=== PATIENT | female | born 1990 | race Caucasian/White ===

== ENCOUNTER 2016-09-02 10:05 | Emergency (ER) | payer BC, MEDICAID ==
[~2016-09-02 10:05] MED LIST: PREN0.01 PO; SYNT88TA PO
[2016-09-02 11:12] LABS: BACTERIA, URINE OCC /hpf; BLOOD, URINE NEG (NEG); COMMENT (UR) CULT NOT INDICATED; CULTURE IF INDICATED CULT NOT INDICATED; GLUCOSE,URINE NEG (NEG); KETONE, URINE NEG (NEG); MUCUS URINE FEW /lpf (OCC); NITRITE,URINE NEG (NEG); SQUAMOUS EPITHELIAL CELL URINE 3 /hpf (0-5); URINE COLOR LIGHT-YELLOW (YELLW/STRAW)
--- NOTE | 2016-09-02 11:49 | PD ---
HPI Chief Complaint Abdominal and back pain for 6 days Date Seen: Sep 02, 2016 Travel History International Travel<30 Days: No Contact w/Intl Traveler<30Days: No Known Affected Area: No History of Present Illness HPI This patient is a 26-year-old white female now at 30 weeks gestation [address] by [address] Oneil for care presents complaining of lower abdominal pain and low back pain for 6 days now but getting a lot worse earlier today. She denies bleeding or rupture the membranes there are no contractions on the monitor and heart rate tracing is reactive Para: 1 : 2 History Obstetric History Obstetric History One vaginal delivery Family History Family History: Negative Social History Alcohol Use: No Tobacco Use: No Substance Abuse: No Allergies-Medications (Allergen,Severity, Reaction): Coded Allergies: No Known Allergies (Verified , 08/02/10) Home Meds Reported Medications Levothyroxine Sodium (Synthroid)88 Mcg Tab88 Mcg PO DAILY 08/02/10 Multivit/Min/Fol Ac/Iron/Pren ( Vit ( Plus)) Tab1 Tab PO DAILY 08/02/10 Review of Systems General / Constitutional: No: Fever, Weight Gain, Chills, Other Eyes: No: Diploplia, Blurred Vision, Visual changes, Pain, Photophobia HENT: No: Headaches, Vertigo, Lightheadedness Cardiovascular: No: Irregular Rhythm, Chest Pain or Discomfort, Palpitations, Tachycardia, Syncope, Varicosities, Edema, Cyanosis Respiratory: No: Cough, Short of Breath, Other Gastrointestinal: Abdominal Pain, No: Nausea, Vomiting, Diarrhea Genitourinary: No: Decreased Urinary Output, Oliguria Musculoskeletal: No: Limited ROM, Weakness, Cramping, Edema, Pain Skin: No Rash, No Itching, No Dryness, No Lumps, No Change in Pigmentation, No Change in Nails, No Alopecia, No Lesions Neurologic: No: Weakness, Dizziness, Syncope, Focal Abnormalities, Coordination Problem, Headache, Slurred Speech, Seizures Psychiatric: No: Depression, Suicidal Ideations, Homicidal Ideation Endocrine: No: Heat Intolerance, Cold Intolerance, Polydipsia, Polyuria, Other Physical Exam Narrative GENERAL: Well-nourished, well-developed patient. Not obviously in pain SKIN: Warm and dry. HEAD: Normocephalic and atraumatic. EYES: No scleral icterus. No injection or drainage. ENT: No nasal drainage noted. Mucous membranes pink. Airway patent. NECK: Supple, trachea midline. No JVD. CARDIOVASCULAR: Regular rate and rhythm without murmurs, gallops, or rubs. RESPIRATORY: Breath sounds equal bilaterally. No accessory muscle use. BREASTS: Bilateral exam showed no masses , no retractions, no nipple discharge. ABDOMEN/GI: Abdomen soft, non-tender, bowel sounds present, no rebound, no guarding Gravid to [30-] weeks size Fundal Height: [-30] GENITOURINARY: External Genitalia: intact and normal in appearance BUS glands: [-] Cervix: [-] Closed posterior high Dilatation: [-0] Effacement: [-] Thick Station: [-3] Membranes: [intact ] Uterine Contractions: [-] FHT's: Category: [1-] Baseline: [-144] Reactive: [-yes] Variability: [mod-] Decels: [none-] EXTREMITIES: No cyanosis or edema. BACK: Nontender without obvious deformity. No CVA tenderness. NEUROLOGICAL: Awake and alert. Motor and sensory grossly within normal limits. Five out of 5 muscle strength in all muscle groups. Normal speech. Data Data Orders Urinalysis - C+S If Indicated (09/02/16 10:58) Labs Laboratory Tests Test 09/02/16 10:20 Urine Color LIGHT-YELLOW Urine Turbidity CLEAR Urine pH 7.0 Urine Specific [place] 1.004 Urine Protein NEG Urine Glucose (UA) NEG Urine Ketones NEG Urine Occult Blood NEG Urine Nitrite NEG Urine Bilirubin NEG Urine Urobilinogen LESS THAN 2.0 Urine Leukocyte Esterase LARGE Urine RBC LESS THAN 1 Urine WBC 2 Urine Squamous Epithelial 3 Cells Urine Bacteria OCC Urine Mucus FEW Microscopic Urinalysis Comment CULT NOT INDICATED MDM Medical Record Reviewed: No Interpretation(s) This patient is a 26-year-old white female at 30 weeks gestation presents with lower abdominal pain and back pain for last 6 days worsening today. Denies bleeding or ruptured membranes. She seemed Dr. Oneil care and especially her back in 2 weeks. Her heart rate tracing is reactive she has no contractions noted her cervix is closed thick and high urinalysis is negative, therefore this is very likely musculoskeletal pain and strain from just activity. This was explained to the patient at length that she needs to increase her rest over the next 2 days lots of water to hydrate and Tylenol 1-2 every 4 when necessary pain also may use a heating pad on her back in time he and as well as soaking in a hot bath Plan Plan to discharge patient home to the above therapies with the increased rest fluid and Tylenol as her mainstay of therapy. She is to follow-up with Dr. Oneil for further problems. Diagnosis Diagnosis: Primary Impression: Round ligament pain Disposition: 01 DISCHARGE HOME Condition: Stable Iain Gomes II, MD Sep 02, 2016 11:49
== END 2016-09-02 12:46 | disposition home or self-care (01) ==
LOC: HOBED 10:05
DX: O26.893 Other specified pregnancy related conditions, third trimester (principal); R10.2 Pelvic and perineal pain; Z3A.30 30 weeks gestation of pregnancy
CPT/HCPCS: 81001; 99284

== ENCOUNTER 2016-09-08 20:02 | Emergency (ER) | payer BC, MEDICAID ==
--- NOTE | 2016-09-08 20:54 | PD ---
HPI Chief Complaint Right-sided back pain Date Seen: Sep 08, 2016 Time Seen: 20:49 Travel History International Travel<30 Days: No Contact w/Intl Traveler<30Days: No Known Affected Area: No History of Present Illness HPI 26-year-old female who is at 30 weeks and 5 days comes in due to right- sided back pain since yesterday afternoon. Patient states that she was uncomfortable and could not sleep last night and the discomfort has continued until today. Denies dysuria or frequency or urgency. Denies fever. Good movement Para: 1 : 2 Last Menstrual Period: Sep 08, 2016 (JIL November 13, 2006) History Past Medical History Narrative Medical Hypothyroidism Medical History: Denies Significant Hx Obstetric History Obstetric History Spontaneous vaginal delivery Past Surgical History Narrative Surgical Cholecystectomy Family History Family History: Negative Social History Alcohol Use: No Tobacco Use: No Substance Abuse: No Allergies-Medications (Allergen,Severity, Reaction): Coded Allergies: No Known Allergies (Verified , 08/02/10) Home Meds Reported Medications Levothyroxine Sodium (Synthroid)88 Mcg Tab88 Mcg PO DAILY 08/02/10 Multivit/Min/Fol Ac/Iron/Pren ( Vit ( Plus)) Tab1 Tab PO DAILY 08/02/10 Review of Systems Except as stated in HPI: all other systems reviewed are Neg Physical Exam Narrative GENERAL: Well-nourished, well-developed patient. SKIN: Warm and dry. HEAD: Normocephalic and atraumatic. EYES: No scleral icterus. No injection or drainage. ENT: No nasal drainage noted. Mucous membranes pink. Airway patent. NECK: Supple, trachea midline. No JVD. CARDIOVASCULAR: Regular rate and rhythm without murmurs, gallops, or rubs. RESPIRATORY: Breath sounds equal bilaterally. No accessory muscle use. BREASTS: Bilateral exam showed no masses , no retractions, no nipple discharge. ABDOMEN/GI: Abdomen soft, non-tender, bowel sounds present, no rebound, no guarding Gravid to [-30] weeks size Fundal Height: [-] GENITOURINARY: External Genitalia: intact and normal in appearance BUS glands: [-] Cervix: [-] Dilatation: [-] Effacement: [-] Station: [-] Presentation: [-] Membranes: [intact or ruptured] Uterine Contractions: [-Absent] FHT's: Category: [1-] Baseline: [135-] Reactive: Variability: Moderate accelerations are present Decels: [-Absent] EXTREMITIES: No cyanosis or edema. BACK: Nontender without obvious deformity. Mild right CVA tenderness extending into lower ribs NEUROLOGICAL: Awake and alert. Motor and sensory grossly within normal limits. Five out of 5 muscle strength in all muscle groups. Normal speech. Data Data Vital Signs Reviewed: Yes Orders Urinalysis - C+S If Indicated (09/08/16 20:33) Labs Laboratory Tests Test 09/08/16 20:18 Urine Color LIGHT-YELLOW Urine Turbidity CLEAR Urine pH 6.5 Urine Specific [place] 1.006 Urine Protein NEG mg/dL Urine Glucose (UA) NEG mg/dL Urine Ketones NEG mg/dL Urine Occult Blood NEG Urine Nitrite NEG Urine Bilirubin NEG Urine Urobilinogen LESS THAN 2.0 MG/DL Urine Leukocyte Esterase SMALL Urine RBC LESS THAN 1 /hpf Urine WBC LESS THAN 1 /hpf Urine Squamous Epithelial <1 /hpf Cells Urine Mucus FEW /lpf Microscopic Urinalysis Comment CULT NOT INDICATED MDM Plan Right-sided back pain with a normal urinalysis. Patient is afebrile. Will discharge home with Tylenol as necessary. Return for fever or worsening symptoms. Follow-up with OB provider as scheduled Diagnosis Diagnosis: Primary Impression: Musculoskeletal back pain Additional Impression: 30 weeks gestation of Disposition: DISCHARGE HOME Hina Adkins MD Sep 08, 2016 20:54
[2016-09-08 21:07] LABS: BLOOD, URINE NEG (NEG); COMMENT (UR) CULT NOT INDICATED; CULTURE IF INDICATED CULT NOT INDICATED; GLUCOSE,URINE NEG (NEG); KETONE, URINE NEG (NEG); MUCUS URINE FEW /lpf (OCC); NITRITE,URINE NEG (NEG); PH, URINE 6.5 (5.0-8.5); SQUAMOUS EPITHELIAL CELL URINE <1 /hpf (0-5); URINE COLOR LIGHT-YELLOW (YELLW/STRAW)
== END 2016-09-08 21:20 | disposition home or self-care (01) ==
LOC: HOBED 20:02
DX: M54.9 Dorsalgia, unspecified (principal); E03.9 Hypothyroidism, unspecified; O26.93 Pregnancy related conditions, unspecified, third trimester; Z3A.30 30 weeks gestation of pregnancy
CPT/HCPCS: 81001; 99284

== ENCOUNTER 2016-10-01 09:01 | Emergency (ER) | payer BC, MEDICAID ==
[2016-10-01 09:15] VITALS: RESP 18
[2016-10-01 09:17] VITALS: BP 129/95; PULSE 107
[2016-10-01 09:22] VITALS: TEMP 98.3
[2016-10-01 09:23] VITALS: BP 131/88; PULSE 103
[2016-10-01 09:30] VITALS: BP 124/80; PULSE 91
--- NOTE | 2016-10-01 09:30 | PD ---
HPI Chief Complaint Low back pain Date Seen: Oct 01, 2016 Time Seen: 09:10 (Amadou Choi MD R1) Travel History International Travel<30 Days: No Contact w/Intl Traveler<30Days: No Known Affected Area: No (Amadou Choi MD R1) History of Present Illness HPI 26 year old at 34/5 weeks gestation presents to OB ED with complaints of low back pain for the past three days. She states her low back pain is slightly worse on her right side. She denies any urinary symptoms, no dysuria, urgency, frequency, or hematuria. Denies fevers. Reports +FM. Denies contractions. No LOF or VB. She otherwise has no complaints or concerns. Para: 1 : 2 (Amadou Choi MD) History Past Medical History Narrative Medical Hypothyroidism (Amadou Choi MD) Obstetric History Obstetric History Previous resulting in (Amadou Choi MD) Past Surgical History Narrative Surgical Cholecystectomy (Amadou Choi MD) Family History Family History: Negative (Amadou Choi MD) Social History Alcohol Use: No Tobacco Use: No Substance Abuse: No (Amadou Choi MD) Allergies-Medications (Allergen,Severity, Reaction): Coded Allergies: No Known Allergies (Verified , 08/02/10) Home Meds Reported Medications Levothyroxine Sodium (Synthroid)88 Mcg Tab88 Mcg PO DAILY 08/02/10 Multivit/Min/Fol Ac/Iron/Pren ( Vit ( Plus)) Tab1 Tab PO DAILY 08/02/10 Review of Systems Except as stated in HPI: all other systems reviewed are Neg (Amadou Choi MD R1) Physical Exam Vital Signs Date Time Temp Pulse Resp B/P Pulse Ox O2 Delivery O2 Flow Rate FiO2 10/01/16 09:17 107 129/95 10/01/16 09:15 18 Narrative GENERAL: Well-nourished, well-developed patient. SKIN: Warm and dry. HEAD: Normocephalic and atraumatic. EYES: No scleral icterus. No injection or drainage. ENT: No nasal drainage noted. Mucous membranes pink. Airway patent. NECK: Supple, trachea midline. No JVD. CARDIOVASCULAR: Regular rate and rhythm without murmurs, gallops, or rubs. RESPIRATORY: Breath sounds equal bilaterally. No accessory muscle use. ABDOMEN/GI: Abdomen soft, non-tender, bowel sounds present, no rebound, no guarding Gravid to 35 weeks size GENITOURINARY: External Genitalia: intact and normal in appearance Cervix: thick Dilatation: [closed] Effacement: [0] Station: [-3] Presentation: [-] Membranes: [intact] Uterine Contractions: none on tocometer FHT's: Category: I Baseline: 130s Reactive: yes Variability: mod Decels: none EXTREMITIES: No cyanosis or edema. BACK: Nontender without obvious deformity. No CVA tenderness. NEUROLOGICAL: Awake and alert. Motor and sensory grossly within normal limits. Normal speech. (Amadou Choi MD R1) Data Data Vital Signs Reviewed: Yes Orders Vital Signs (Adult) .ON ADMISSION (10/01/16 09:14) ^ Labor Status (10/01/16 09:14) Urinalysis - C+S If Indicated (10/01/16 09:14) ^ Hydration (10/01/16 09:14) (Amadou Choi MD R1) MDM Medical Record Reviewed: Yes Plan 26 year old at 34/5 weeks gestation presents to OB ED with complaints of low back pain. 1. IUP - Category I tracing, reassuring - No contractions on tocometer - No report of LOF or VB - On external inspection there was noted to be a scant amount of clear fluid. Amnisure negative. - Speculum examination performed prior to digital exam showed closed cervix - UA is clean and no culture indicated - No fevers or urinary symptoms. No CVA tenderness - Encourage oral hydration - Tylenol prn pain - Follow up with Dr. Oneil for routine care wdw Dr. Fuentes (Amadou Choi MD R1) Diagnosis Diagnosis: Primary Impression: Low back pain during Additional Impression: Nursery Hancock' contraction Disposition: 01 DISCHARGE HOME Condition: Stable Patient Instructions: Early Labor Signs (ED) Addendum Remarks I rounded on the patient. I rounded with the resident. I reviewed the resident' s assessment and plan of care for this patient. I am in agreement with the plan of care for this patient. (Shipla Alva MD) Amadou Choi MD R1 Oct 01, 2016 09:30 Shilpa Alva MD Oct 01, 2016 09:58
[2016-10-01 09:40] LABS: BLOOD, URINE NEG (NEG); GLUCOSE,URINE NEG (NEG); KETONE, URINE NEG (NEG); NITRITE,URINE NEG (NEG); PH, URINE 6.5 (5.0-8.5); SQUAMOUS EPITHELIAL CELL URINE <1 /hpf (0-5); URINE COLOR YELLOW (YELLW/STRAW)
[2016-10-01 09:41] LABS: COMMENT (UR) CULT NOT INDICATED; CULTURE IF INDICATED CULT NOT INDICATED
== END 2016-10-01 09:59 | disposition home or self-care (01) ==
LOC: HOBED 09:01
DX: M54.5 Low back pain (principal); O47.03 False labor before 37 completed weeks of gestation, third trimester; Z3A.34 34 weeks gestation of pregnancy
CPT/HCPCS: 59025; 81001; 84112

== ENCOUNTER 2016-10-12 17:18 | Observation (INO) | payer BC, MEDICAID ==
--- NOTE | 2016-10-12 18:01 | HHI.HP ---
HPI Chief Complaint headache at 36 weeks with elevated BP at home Date Seen: Oct 12, 2016 Time Seen: 17:56 Travel History International Travel<30 Days: No Contact w/Intl Traveler<30Days: No Known Affected Area: No History of Present Illness HPI 26 yo wf at 36 2/7 arrived to OB ED with c/o severe headache on left side, blurred vision and elevated BP at home No HTN during routine and complete PNC. No PIH or pre eclampsia with first child 6 years ago although new father. Feels very swollen. No N or V initial strip fairly flat PNC with HOGA mostly with Oneil. Mild hypothyroidism No PTL No GDM GFM Allergies-Medications (Allergen,Severity, Reaction): Coded Allergies: No Known Allergies (Verified , 08/02/10) Home Meds Reported Medications Levothyroxine Sodium (Synthroid)88 Mcg Tab88 Mcg PO DAILY 08/02/10 Multivit/Min/Fol Ac/Iron/Pren ( Vit ( Plus)) Tab1 Tab PO DAILY 08/02/10 Physical Exam Narrative GENERAL: Well-nourished, well-developed patient.mildly puffy SKIN: Warm and dry. HEAD: Normocephalic and atraumatic. frowning with her headache EYES: No scleral icterus. No injection or drainage. ENT: No nasal drainage noted. Mucous membranes pink. Airway patent. NECK: Supple, trachea midline. No JVD. CARDIOVASCULAR: Regular rate and rhythm without murmurs, gallops, or rubs. RESPIRATORY: Breath sounds equal bilaterally. No accessory muscle use. BREASTS: Bilateral exam showed no masses , no retractions, no nipple discharge. ABDOMEN/GI: Abdomen soft, non-tender, bowel sounds present, no rebound, no guarding fundal height consistent with dates Membranes: [intact or ruptured] 1+/80/-1 and posterior EXTREMITIES: No cyanosis 2+ edema normal reflexes BACK: Nontender without obvious deformity. No CVA tenderness. NEUROLOGICAL: Awake and alert. Motor and sensory grossly within normal limits. Five out of 5 muscle strength in all muscle groups. Normal speech. Data Data Vital Signs Reviewed: Yes Labs PIH at near term. rule out pre exclampsia labs, continiuous monitoring move toward delivery if condition merits. Marcela Knutson MD Oct 12, 2016 18:01
[2016-10-12] MEDS ORDERED: ZOLPIDEM TARTRATE 5 MG TAB PO PRN (19:15)
[2016-10-12] MEDS ORDERED: ONDANSETRON HCL 4 MG/2 ML VIAL IV PRN (19:15)
[2016-10-12] MEDS ORDERED: LACTATED RINGER'S 1000 ML INJ 1,000 ML IV SCH (19:15)
[2016-10-12] MEDS ORDERED: ACETAMINOPHEN 325 MG TAB PO PRN (19:15)
[2016-10-12 19:54] LABS: BASOPHIL % 0.2 % (0.0-2.0); EOSINOPHIL # 0.1 TH/MM3 (0-0.4); EOSINOPHIL % 0.7 % (0.0-4.0); HEMATOCRIT 32.7 % (35.0-46.0); HEMO FLAGS DIFF FINAL; LYMPH % 23.2 % (9.0-44.0); MEAN CORPUSCULAR HEMOGLOBIN 31.1 PG (27.0-34.0); MEAN CORPUSCULAR HGB CONC 34.6 % (32.0-36.0); MONO % 6.7 % (0.0-8.0); NEUT % 69.2 % (16.0-70.0); PLATELET COUNT 160 TH/MM3 (150-450); RED BLOOD COUNT 3.63 MIL/MM3 (4.00-5.30); RED CELL DISTRIBUTION WIDTH 13.6 % (11.6-17.2); WHITE BLOOD COUNT 8.6 TH/MM3 (4.0-11.0)
[2016-10-12 19:56] VITALS: BP 126/93; PULSE 76
[2016-10-12 19:57] VITALS: RESP 18; TEMP 98.4
[2016-10-12 20:03] LABS: BLOOD, URINE NEG (NEG); COMMENT (UR) CULT NOT INDICATED; CULTURE IF INDICATED CULT NOT INDICATED; GLUCOSE,URINE NEG (NEG); KETONE, URINE NEG (NEG); NITRITE,URINE NEG (NEG); PH, URINE 6.5 (5.0-8.5); SQUAMOUS EPITHELIAL CELL URINE 1 /hpf (0-5); URINE COLOR COLORLESS (YELLW/STRAW)
[2016-10-12 20:10] LABS: BICARBONATE 22.3 MEQ/L (21.0-32.0); INDIRECT BILIRUBIN 0.2 MG/DL (0.0-0.8); POTASSIUM 3.4 MEQ/L (3.5-5.1); TOTAL BILIRUBIN ADULT 0.3 MG/DL (0.2-1.0); URIC ACID 5.1 MG/DL (2.6-6.0)
[2016-10-12] MEDS ORDERED: ACETAMIN 325 MG/BUTALBITAL 50 MG/CAFFEINE 40 MG TAB PO PRN (21:00)
[2016-10-12 21:49] VITALS: BP 132/84; PULSE 72
[2016-10-13] VITALS (8 sets, daily range): BP systolic 116–139; BP diastolic 67–83; PULSE 68–77; RESP 16–20; TEMP 98–99
[2016-10-13] MEDS ORDERED: LEVOTHYROXINE SODIUM 112 MCG TAB PO SCH (06:00)
[2016-10-13] MEDS ORDERED: LEVOTHYROXINE SODIUM 25 MCG TAB PO SCH (06:00)
--- NOTE | 2016-10-13 07:51 | PD.OB.ANTE ---
Subjective Diagnosis: (1) Headache Diagnosis: Principal (2) Gestational hypertension Diagnosis: Principal (3) 36 weeks gestation of Diagnosis: Principal Interval History Headache resolved overnight. No current complaints. Good FM. Pain 0/10. No blurred vision, no CARR, no RUQ pain, no edema. Antepartum ROS: Reports: movement normal, Denies: New complaints, Loss of fluid, Vaginal bleeding, Contractions, Other Objective Vital Signs Vital Signs Date Time Temp Pulse Resp B/P Pulse Ox O2 Delivery O2 Flow Rate FiO2 10/13/16 06:07 98.4 18 10/13/16 06:05 68 139/82 10/13/16 06:01 18 10/13/16 03:56 16 10/13/16 03:56 99.0 10/13/16 03:47 74 117/75 10/13/16 00:05 98.0 18 10/13/16 00:04 70 116/67 10/12/16 21:49 72 132/84 10/12/16 19:57 98.4 18 10/12/16 19:56 76 126/93 Lab & Micro Results Test 10/12/16 17:30 White Blood Count 8.6 TH/MM3 Red Blood Count 3.63 MIL/MM3 Hemoglobin 11.3 GM/DL Hematocrit 32.7 % Mean Corpuscular Volume 90.0 FL Mean Corpuscular Hemoglobin 31.1 PG Mean Corpuscular Hemoglobin 34.6 % Concent Red Cell Distribution Width 13.6 % Platelet Count 160 TH/MM3 Mean Platelet Volume 10.2 FL Neutrophils (%) (Auto) 69.2 % Lymphocytes (%) (Auto) 23.2 % Monocytes (%) (Auto) 6.7 % Eosinophils (%) (Auto) 0.7 % Basophils (%) (Auto) 0.2 % Neutrophils # (Auto) 6.0 TH/MM3 Lymphocytes # (Auto) 2.0 TH/MM3 Monocytes # (Auto) 0.6 TH/MM3 Eosinophils # (Auto) 0.1 TH/MM3 Basophils # (Auto) 0.0 TH/MM3 CBC Comment DIFF FINAL Differential Comment Urine Color COLORLESS Urine Turbidity CLEAR Urine pH 6.5 Urine Specific [place] 1.004 Urine Protein NEG mg/dL Urine Glucose (UA) NEG mg/dL Urine Ketones NEG mg/dL Urine Occult Blood NEG Urine Nitrite NEG Urine Bilirubin NEG Urine Urobilinogen LESS THAN 2.0 MG/DL Urine Leukocyte Esterase NEG Urine RBC 1 /hpf Urine WBC 1 /hpf Urine Squamous Epithelial 1 /hpf Cells Microscopic Urinalysis Comment CULT NOT INDICATED Sodium Level 139 MEQ/L Potassium Level 3.4 MEQ/L Chloride Level 107 MEQ/L Carbon Dioxide Level 22.3 MEQ/L Anion Gap 10 MEQ/L Blood Urea Nitrogen 3 MG/DL Creatinine 0.49 MG/DL Estimat Glomerular Filtration 153 ML/MIN Rate Random Glucose 66 MG/DL Uric Acid 5.1 MG/DL Calcium Level 8.4 MG/DL Total Bilirubin 0.3 MG/DL Direct Bilirubin 0.1 MG/DL Indirect Bilirubin 0.2 MG/DL Aspartate Amino Transf 15 U/L (AST/SGOT) Alanine Aminotransferase 13 U/L (ALT/SGPT) Alkaline Phosphatase 178 U/L Total Protein 6.3 GM/DL Albumin 2.9 GM/DL Physical Exam GENERAL: Well-nourished, well-developed patient. CARDIOVASCULAR: Regular rate and rhythm without murmurs, gallops, or rubs. RESPIRATORY: Breath sounds equal bilaterally. No accessory muscle use. ABDOMEN/GI: Abdomen soft, non-tender. Fundus: [36] GENITOURINARY: External Genitalia: deferred FHT's: Category: [I] Baseline: [130s] Reactive: [y] Variability: [y] Decels: [n] EXTREMITIES: No cyanosis or edema, non-tender, without signs of DVT. Assessment and Plan Problem List: (1) Headache Status: Acute (2) Gestational hypertension Status: Acute (3) 36 weeks gestation of Status: Acute Assessment and Plan 26 yo at 36w3d admit overnight for observation due to reported elevated BP at home and headache since Tuesday 1) GHTN/CARR: headache resolved with rest & IV fluids; no severe range BPs while here, reports home pressures 150s/90s since Tuesday. PIH labs wnl, no protein in urine; at this time d/w pt precautions but due to no signs of severity ok to d/c to home with office f/u in 1-2 days, plan BPP & growth prior to d/c for full assessment 2) status: female, Cat I tracing 3) dispo: d/c after BPP/growth scan if reassuring Debbi Bellamy MD Oct 13, 2016 07:51
[2016-10-13] MEDS ORDERED: MULTIVIT/MIN/PREN/FOL AC/IRON PRENATAL TAB PO SCH (09:00)
== END 2016-10-13 13:09 | disposition home or self-care (01) ==
LOC: HOBED 17:18 → H2EA 18:24 → INTOOBSV 18:24 → UNDODISIN 10-13 13:09
PROVIDERS: ADMIT Obstetrics & Gynecology; ATTEND Obstetrics & Gynecology
DX: O13.3 Gestational [pregnancy-induced] hypertension without significant proteinuria, third trimester (principal); R51 Headache; H53.8 Other visual disturbances; E03.9 Hypothyroidism, unspecified; Z3A.36 36 weeks gestation of pregnancy
CPT/HCPCS: 76816; 76819; 76820; 80048; 80076; 81001; 84550; 85025; 99284; G0378

== ENCOUNTER 2016-10-25 18:02 | Inpatient (IN) | payer BC, MEDICAID ==
[2016-10-25 18:56] LABS: AUTOMATED NEUTROPHIL # 6.9 TH/MM3 (1.8-7.7); BASOPHIL % 0.2 % (0.0-2.0); EOSINOPHIL % 0.5 % (0.0-4.0); HEMO FLAGS DIFF FINAL; LYMPHOCYTE # 1.9 TH/MM3 (1.0-4.8); MEAN CELL VOLUME 90.1 FL (80.0-100.0); MEAN CORPUSCULAR HEMOGLOBIN 29.9 PG (27.0-34.0); MEAN CORPUSCULAR HGB CONC 33.2 % (32.0-36.0); MONO % 5.9 % (0.0-8.0); NEUT % 73.4 % (16.0-70.0); PLATELET COUNT 171 TH/MM3 (150-450); RED BLOOD COUNT 3.78 MIL/MM3 (4.00-5.30); RED CELL DISTRIBUTION WIDTH 13.5 % (11.6-17.2); WHITE BLOOD COUNT 9.4 TH/MM3 (4.0-11.0)
[2016-10-25 19:08] LABS: BLOOD, URINE SMALL (NEG); COMMENT (UR) CULT NOT INDICATED; CULTURE IF INDICATED CULT NOT INDICATED; GLUCOSE,URINE NEG (NEG); KETONE, URINE NEG (NEG); MUCUS URINE FEW /lpf (OCC); NITRITE,URINE NEG (NEG); PH, URINE 6.5 (5.0-8.5); SQUAMOUS EPITHELIAL CELL URINE 1 /hpf (0-5); URINE COLOR LIGHT-YELLOW (YELLW/STRAW)
[2016-10-25 19:25] LABS: ALKALINE PHOSPHATASE 214 U/L (45-117); ALT (GPT) 16 U/L (10-53); ANION GAP 11 MEQ/L (5-15); AST (GOT) 14 U/L (15-37); BICARBONATE 20.4 MEQ/L (21.0-32.0); BLOOD UREA NITROGEN 2 MG/DL (7-18); CHLORIDE 107 MEQ/L (98-107); GLOMERULAR FILTRATION RATE 128 ML/MIN (>89); POTASSIUM 3.4 MEQ/L (3.5-5.1); SODIUM (NA) 138 MEQ/L (136-145); TOTAL BILIRUBIN ADULT 0.3 MG/DL (0.2-1.0)
[2016-10-25] MEDS ORDERED: NS 500 ML BOLUS IV PRN (19:30)
[2016-10-25] MEDS ORDERED: OXYTOCIN 30 UNITS 500ML PREMIX IV ONE (19:30)
[2016-10-25] MEDS ORDERED: LIDOCAINE HCL 1% 50 ML VIAL I-DERMAL PRN (19:30)
[2016-10-25] MEDS ORDERED: LIDOCAINE HCL 1% 50 ML VIAL INFIL PRN (19:30)
[2016-10-25] MEDS ORDERED: CITRIC ACID-SODIUM CITRATE LIQ 30 ML UDC PO SCH (19:30)
[2016-10-25] MEDS ORDERED: LACTATED RINGER'S 1000 ML BOLUS IV PRN (19:30)
[2016-10-25] MEDS ORDERED: ONDANSETRON HCL 4 MG/2 ML VIAL IV PRN (19:30)
[2016-10-25] MEDS ORDERED: MINERAL OIL 10 ML VIAL TOPICAL PRN (19:30)
[2016-10-25] MEDS ORDERED: NS 1000 ML IV PRN (19:30)
[2016-10-25 19:42] VITALS: BP 138/86; PULSE 79
[2016-10-25 19:43] VITALS: RESP 18; TEMP 98
[2016-10-25] MEDS ORDERED: DINOPROSTONE 10 MG INSERT-LEAVE FOR 12 HOURS VAGINAL ONE (19:45)
[2016-10-25 23:56] VITALS: BP 141/95; PULSE 65
[2016-10-26] VITALS (81 sets, daily range): BP systolic 109–164; BP diastolic 71–123; PULSE 60–189; RESP 16–18; TEMP 98–100.6; O2SAT 98
[2016-10-26] MEDS: LACTATED RINGER'S 1000 ML IV SCH ×3 (06:00→17:20)
[2016-10-26] MEDS: LEVOTHYROXINE SODIUM 112 MCG TAB PO SCH (06:00)
[2016-10-26] MEDS: LEVOTHYROXINE SODIUM 25 MCG TAB PO SCH (06:00)
[2016-10-26] MEDS ORDERED: ACETAMINOPHEN 325 MG TAB PO ONE ×2 (06:45→17:15)
--- NOTE | 2016-10-26 07:59 | PD.LABORPN ---
Subjective Subjective comfortable post night of cervidil no CARR, N, V, blurred vision GFM mild UCs Objective Vital Signs Vital Signs Date Time Temp Pulse Resp B/P Pulse Ox O2 Delivery O2 Flow Rate FiO2 10/26/16 07:25 62 131/85 10/26/16 07:24 18 10/26/16 06:34 98.6 18 10/26/16 06:19 87 134/95 10/26/16 01:08 83 123/76 10/26/16 00:00 60 155/99 Objective 2-3/80-/-1 AROM clear pelvis proven and clinically adequate EFW 7 category one strip Assessment/Plan Assessment and Plan at term brought in for mild HIP favorable bishops post cervidil and AROM breakfast, shower, birthing ball and pitocin prn epidural prn anticipate Marcela Gonsales MD Oct 26, 2016 07:59
[2016-10-26] MEDS ORDERED: fentaNYL 2MCG-BUPIV 0.125% INJ 100 ML ONE (13:27)
[2016-10-26] MEDS ORDERED: ePHEDrine/NS 25 MG/5 ML SYR ONE (14:08)
[2016-10-26] MEDS ORDERED: fentaNYL 2MCG-BUPIV 0.125% 100 ML EPIDURAL SCH (15:00)
[2016-10-26] MEDS ORDERED: NO SYSTEM NARCOTICS PRN (15:00)
[2016-10-26] MEDS ORDERED: ePHEDrine/NS 25 MG/5 ML SYR IV PRN (15:00)
[2016-10-26] MEDS ORDERED: DO NOT ADMINISTER ANTICOAGULANTS PRN (15:00)
[2016-10-26] MEDS ORDERED: OXYTOCIN 30 UNITS-500ML PREMIX 500 ML ONE (16:28)
[2016-10-26] MEDS ORDERED: ceFAZolin 1,000 MG/NS 100 ML IV ONE ×2 (17:15)
--- NOTE | 2016-10-26 18:17 | PD.OB.DELI ---
Anesthesia: Epidural Episiotomy: None Vaginal Delivery: Normal Presentation: Occiput anterior Nuchal Cord: None Delayed cord clamping (45 sec): Yes Infant: Female One Minute : 8 Five Minute : 9 Weight: 7 Placenta: Spontaneous delivery Laceration: No lacerations Marcela Knutson MD Oct 26, 2016 18:17
[2016-10-26] MEDS ORDERED: ONDANSETRON ODT 4 MG TAB PO PRN (18:30)
[2016-10-26] MEDS ORDERED: SODIUM CHLORIDE 0.9% FLUSH 10 ML FLUSH IV FLUSH PRN (18:30)
[2016-10-26] MEDS ORDERED: DOCUSATE SODIUM 50 MG/SENNA 8.6 MG TAB PO PRN (18:30)
[2016-10-26] MEDS ORDERED: WITCH HAZEL 50%/GLYCERIN 12.5% 40 PAD JAR TOPICAL PRN (18:30)
[2016-10-26] MEDS ORDERED: ALUMINUM/MAGNESIUM/SIMETH 30 ML CUP PO PRN (18:30)
[2016-10-26] MEDS ORDERED: ZOLPIDEM TARTRATE 5 MG TAB PO PRN (18:30)
[2016-10-26] MEDS ORDERED: ACETAMINOPHEN 325 MG TAB PO PRN (18:30)
[2016-10-26] MEDS ORDERED: BENZOCAINE 20% TOPICAL SPRAY 60 ML CAN TOPICAL PRN (18:30)
[2016-10-26] MEDS ORDERED: MEASLES, MUMPS, RUBELLA VACCINE 0.5 ML VIAL SQ ONE (20:00)
[2016-10-26] MEDS ORDERED: DIPHTH/TETANUS/ACEL PERTUSSIS (BOOSTER) 0.5 ML VIAL/PFS IM ONE (20:00)
[2016-10-26] MEDS ORDERED: SODIUM CHLORIDE 0.9% FLUSH 10 ML FLUSH IV FLUSH SCH (21:00)
[2016-10-26] MEDS: IBUPROFEN 600 MG TAB PO PRN (21:42)
[2016-10-26] MEDS: oxyCODONE/ACETAMINOPHEN 5 MG/325 MG TAB PO PRN (21:42)
[2016-10-26] MEDS ORDERED: oxyCODONE/ACETAMINOPHEN 5 MG/325 MG TAB PO PRN (21:45)
[2016-10-27] MEDS: oxyCODONE/ACETAMINOPHEN 5 MG/325 MG TAB PO PRN ×4 (02:06→21:01)
[2016-10-27] MEDS: IBUPROFEN 600 MG TAB PO PRN ×3 (04:46→17:46)
[2016-10-27 05:58] LABS: HEMATOCRIT 26.2 % (35.0-46.0); REVIEW FLAG FINAL
[2016-10-27] MEDS: LEVOTHYROXINE SODIUM 25 MCG TAB PO SCH (06:09)
[2016-10-27] MEDS: LEVOTHYROXINE SODIUM 112 MCG TAB PO SCH (06:09)
[2016-10-27 08:05] VITALS: BP 117/87; PULSE 81; RESP 18; TEMP 98.1
--- NOTE | 2016-10-27 08:33 | HHI.OB ---
Subjective Post Day: 1 Remarks feeling better today, no CARR, BV, CP Objective Vitals/I&O Vital Signs Date Time Temp Pulse Resp B/P Pulse Ox O2 Delivery O2 Flow Rate FiO2 10/27/16 05:46 16 10/27/16 03:06 16 10/26/16 22:30 83 18 128/71 10/26/16 21:45 86 18 139/79 10/26/16 20:05 98.5 70 18 130/90 98 10/26/16 19:30 74 128/77 10/26/16 19:15 80 135/91 10/26/16 19:00 85 127/75 10/26/16 18:45 18 10/26/16 18:30 94 128/80 10/26/16 18:29 92 128/71 10/26/16 18:20 18 10/26/16 18:12 106 147/73 10/26/16 18:11 98.4 18 10/26/16 18:02 189 153/99 10/26/16 17:55 133 138/80 10/26/16 17:55 98 10/26/16 17:51 115 109/90 10/26/16 17:50 98 10/26/16 17:45 97 146/123 10/26/16 17:45 120 10/26/16 17:40 92 10/26/16 17:35 97 10/26/16 17:30 109 10/26/16 17:30 90 154/91 10/26/16 17:25 107 10/26/16 17:20 94 10/26/16 17:15 81 10/26/16 17:10 89 10/26/16 17:05 90 10/26/16 17:02 88 152/91 10/26/16 17:00 95 162/83 10/26/16 17:00 80 10/26/16 16:55 100.6 87 18 10/26/16 16:50 87 10/26/16 16:45 87 10/26/16 16:40 87 10/26/16 16:35 83 10/26/16 16:35 86 147/87 10/26/16 16:30 99.7 10/26/16 16:30 84 140/97 10/26/16 16:30 18 10/26/16 16:30 87 10/26/16 16:25 78 10/26/16 16:20 90 10/26/16 16:15 101 10/26/16 16:10 98 10/26/16 16:05 90 10/26/16 16:00 80 10/26/16 16:00 80 126/75 10/26/16 15:55 82 10/26/16 15:50 82 10/26/16 15:45 81 143/88 10/26/16 15:45 77 10/26/16 15:40 81 10/26/16 15:35 78 10/26/16 15:30 82 138/85 10/26/16 15:30 77 10/26/16 15:25 75 10/26/16 15:20 75 10/26/16 15:15 77 146/89 10/26/16 15:15 77 10/26/16 15:10 73 10/26/16 15:06 18 10/26/16 15:05 74 10/26/16 15:00 68 136/78 10/26/16 15:00 64 10/26/16 14:55 73 132/84 10/26/16 14:55 79 10/26/16 14:50 85 10/26/16 14:50 79 138/86 10/26/16 14:45 80 134/84 10/26/16 14:45 74 10/26/16 14:43 98.6 10/26/16 14:40 75 10/26/16 14:40 78 138/88 10/26/16 14:38 16 10/26/16 14:35 77 138/90 10/26/16 14:35 85 10/26/16 14:31 76 148/88 10/26/16 14:30 87 10/26/16 14:29 91 164/108 10/26/16 14:25 84 10/26/16 14:25 94 139/97 10/26/16 14:21 86 154/99 10/26/16 14:20 92 10/26/16 14:15 83 10/26/16 14:10 92 10/26/16 14:06 76 136/85 10/26/16 14:05 83 10/26/16 14:04 95 151/103 10/26/16 12:18 77 133/81 4/11/17 12:17 76 138/92 10/26/16 12:15 98.0 18 10/26/16 10:19 18 10/26/16 10:19 74 138/86 10/26/16 09:26 98.1 18 10/26/16 09:26 89 124/84 Objective Remarks GENERAL: Well-nourished, well-developed patient. CARDIOVASCULAR: Regular rate and rhythm without murmurs, gallops, or rubs. RESPIRATORY: Breath sounds equal bilaterally. No accessory muscle use. ABDOMEN/GI: Abdomen soft, non-tender. Fundus: Firm, non-tender at umbilicus. GENITOURINARY: Light to moderate bleeding. EXTREMITIES: No cyanosis or edema, non-tender, without signs of DVT. Medications and IVs Current Medications Medications (Trade) Dose Ordered Sig/Rito Route Start Time Stop Time Status Last Admin Lactated Ringer's 1,000 ml @ 125 mls/hr Q8H IV 10/25/16 19:30 10/26/16 17:20 Lactated Ringer's 1,000 ml @ 3,000 mls/hr BOLUS PRN IV 10/25/16 19:30 Sodium Chloride 500 ml @ 1,000 mls/hr BOLUS PRN IV 10/25/16 19:30 (NS 1000 ml Inj) 1,000 ml @ 100 mls/hr Q10H PRN IV 10/25/16 19:30 (Zofran Inj) 4 mg Q6H PRN IV 10/25/16 19:30 (fentaNYL INJ) 50 mcg Q1H PRN IV PUSH 10/25/16 19:30 (fentaNYL INJ) 100 mcg Q1H PRN IV PUSH 10/25/16 19:30 10/26/16 12:46 (Muri-Lube Oil) 10 ml UNSCH PRN TOPICAL 10/25/16 19:30 (Synthroid) 25 mcg DAILY@06 PO 10/26/16 06:00 10/27/16 06:09 (Synthroid) 112 mcg DAILY@06 PO 10/26/16 06:00 10/27/16 06:09 Miscellaneous Information No systemic narcotics to be given except... UNSCH PRN .XX 10/26/16 15:00 10/27/16 14:59 Miscellaneous Information DO NOT ADMINISTER ANY ANTICOAGUL... UNSCH PRN .XX 10/26/16 15:00 10/27/16 14:59 (fentaNYL 2MCG-BUPIV 0.125% INJ) 100 ml @ 0 mls/hr TITRATE EPIDURAL 10/26/16 15:00 (ePHEDrine/NS 25 MG/5 ML SYR) 10 mg UNSCH PRN IV 10/26/16 15:00 10/27/16 14:59 (NS Flush) 2 ml BID IV FLUSH 10/26/16 21:00 (NS Flush) 2 ml UNSCH PRN IV FLUSH 10/26/16 18:30 (Tylenol) 650 mg Q4H PRN PO 10/26/16 18:30 (Motrin) 600 mg Q6H PRN PO 10/26/16 18:30 10/27/16 04:46 (Americaine 20% Top Spr) 1 spray Q4H PRN TOPICAL 10/26/16 18:30 (Tucks Pads) 1 applic QID PRN TOPICAL 10/26/16 18:30 (May-Colace) 2 tab Q12H PRN PO 10/26/16 18:30 (Ambien) 5 mg HS PRN PO 10/26/16 18:30 (Mag-Al Plus Susp Liq) 15 ml Q8H PRN PO 10/26/16 18:30 (Zofran Odt) 4 mg Q6H PRN PO 10/26/16 18:30 (Percocet 5-325 Mg) 1 tab Q4H PRN PO 10/26/16 21:45 10/27/16 06:10 (Percocet 5-325 Mg) 2 tab Q4H PRN PO 10/26/16 21:45 10/27/16 02:06 Assessment/Plan Problem List: (1) Gestational hypertension (2) Vaginal delivery Assessment and Plan PPD #1 doing well Discharge Planning routine Attending Attestation pt seen by Zita Katz MD Oct 27, 2016 08:33
[2016-10-27] MEDS: LACTATED RINGER'S 1000 ML IV SCH (19:15)
[2016-10-27 19:51] VITALS: BP 136/91; PULSE 82; RESP 16; TEMP 98.6; O2SAT 99
[2016-10-28] MEDS: IBUPROFEN 600 MG TAB PO PRN ×2 (00:47→06:29)
[2016-10-28] MEDS: oxyCODONE/ACETAMINOPHEN 5 MG/325 MG TAB PO PRN ×2 (00:47→06:29)
[2016-10-28] MEDS: LACTATED RINGER'S 1000 ML IV SCH (03:30)
[2016-10-28] MEDS: LEVOTHYROXINE SODIUM 112 MCG TAB PO SCH (06:28)
[2016-10-28] MEDS: LEVOTHYROXINE SODIUM 25 MCG TAB PO SCH (06:28)
[2016-10-28 08:18] VITALS: BP 126/81; PULSE 65; RESP 16; TEMP 98.2
--- NOTE | 2016-10-28 08:48 | HHI.OB ---
Subjective Post Day: 2 Remarks doing well nursing well bleeding is minimal Objective Vitals/I&O Vital Signs Date Time Temp Pulse Resp B/P Pulse Ox O2 Delivery O2 Flow Rate FiO2 10/28/16 08:18 98.2 65 16 126/81 10/28/16 07:30 18 10/28/16 07:30 18 10/27/16 19:51 98.6 10/27/16 19:51 82 16 136/91 99 Objective Remarks GENERAL: Well-nourished, well-developed patient. CARDIOVASCULAR: Regular rate and rhythm without murmurs, gallops, or rubs. RESPIRATORY: Breath sounds equal bilaterally. No accessory muscle use. ABDOMEN/GI: Abdomen soft, non-tender. Fundus: Firm, non-tender at umbilicus. GENITOURINARY: Light to moderate bleeding. EXTREMITIES: No cyanosis or edema, non-tender, without signs of DVT. Medications and IVs Current Medications Medications (Trade) Dose Ordered Sig/Rito Route Start Time Stop Time Status Last Admin Lactated Ringer's 1,000 ml @ 125 mls/hr Q8H IV 10/25/16 19:30 10/26/16 17:20 Lactated Ringer's 1,000 ml @ 3,000 mls/hr BOLUS PRN IV 10/25/16 19:30 Sodium Chloride 500 ml @ 1,000 mls/hr BOLUS PRN IV 10/25/16 19:30 (NS 1000 ml Inj) 1,000 ml @ 100 mls/hr Q10H PRN IV 10/25/16 19:30 (Zofran Inj) 4 mg Q6H PRN IV 10/25/16 19:30 (fentaNYL INJ) 50 mcg Q1H PRN IV PUSH 10/25/16 19:30 (fentaNYL INJ) 100 mcg Q1H PRN IV PUSH 10/25/16 19:30 10/26/16 12:46 (Muri-Lube Oil) 10 ml UNSCH PRN TOPICAL 10/25/16 19:30 (Synthroid) 25 mcg DAILY@06 PO 10/26/16 06:00 10/28/16 06:28 Levothyroxine Sodium 112 mcg 112 mcg DAILY@06 PO 10/26/16 06:00 10/28/16 06:28 (fentaNYL 2MCG-BUPIV 0.125% INJ) 100 ml @ 0 mls/hr TITRATE EPIDURAL 10/26/16 15:00 (NS Flush) 2 ml BID IV FLUSH 10/26/16 21:00 (NS Flush) 2 ml UNSCH PRN IV FLUSH 10/26/16 18:30 (Tylenol) 650 mg Q4H PRN PO 10/26/16 18:30 (Motrin) 600 mg Q6H PRN PO 10/26/16 18:30 10/28/16 06:29 (Americaine 20% Top Spr) 1 spray Q4H PRN TOPICAL 10/26/16 18:30 (Tucks Pads) 1 applic QID PRN TOPICAL 10/26/16 18:30 (May-Colace) 2 tab Q12H PRN PO 10/26/16 18:30 10/27/16 21:00 (Ambien) 5 mg HS PRN PO 10/26/16 18:30 (Mag-Al Plus Susp Liq) 15 ml Q8H PRN PO 10/26/16 18:30 (Zofran Odt) 4 mg Q6H PRN PO 10/26/16 18:30 (Percocet 5-325 Mg) 1 tab Q4H PRN PO 10/26/16 21:45 10/27/16 06:10 (Percocet 5-325 Mg) 2 tab Q4H PRN PO 10/26/16 21:45 10/28/16 06:29 Assessment/Plan Problem List: (1) Gestational hypertension (2) Vaginal delivery Assessment and Plan PPD #2 doing well home today RTO 6 weeks Discharge Planning routine Marcela Knutson MD Oct 28, 2016 08:48
[2016-10-28] MEDS ORDERED: IBUP-232 PO (08:50)
--- NOTE | 2016-10-28 08:50 | HHI.DCPOC ---
Discharge Care Plan Report Symptoms to Your Doctor -Temperate above 100.5 degrees -Redness, of incision or excessive or foul smelling drainage -Unusual pain or calf pain -Increased vaginal bleeding -Painful or difficulty urinating -Feelings of extreme sadness or anxiety after 2 weeks Goals to Promote Your Health * To prevent worsening of your condition and complications * To maintain your health at the optimal level Directions to Meet Your Goals Take your medications as prescribed Follow your dietary instruction Follow activity as directed Ensure plenty of rest for recovery Drink fluids for hydration Keep your appointments as scheduled Take your immunizations and boosters as scheduled If your symptoms worsen call your PCP, if no PCP go to Urgent Care Center or Emergency Room Smoking is Dangerous to Your Health. Avoid second hand smoke Call the 24-hour crisis hotline for domestic abuse at Marcela Knutson MD Oct 28, 2016 08:50
== END 2016-10-28 10:21 | disposition home or self-care (01) | DRG 775 ==
LOC: H2EA 18:02 → H1EA 10-26 19:59
PROVIDERS: ADMIT Obstetrics & Gynecology; ATTEND Obstetrics & Gynecology
PROC: 10E0XZZ Delivery of Products of Conception, External Approach (ICD-10-PCS; principal; 2016-10-26)
PROC: 10E0XZZ Delivery of Products of Conception, External Approach (ICD-10-PCS; 2016-10-26)
DX: O13.4 Gestational [pregnancy-induced] hypertension without significant proteinuria, complicating childbirth (principal); E03.9 Hypothyroidism, unspecified; O99.284 Endocrine, nutritional and metabolic diseases complicating childbirth; Z3A.38 38 weeks gestation of pregnancy; Z37.0 Single live birth
CPT/HCPCS: 59025; 80053; 81001; 85014; 85018; 85025; 86900; 86901; 90715; J0690; J2590; J3010; J7120

== ENCOUNTER 2017-03-22 17:34 | Emergency (ER) | payer BC, MEDICAID ==
[~2017-03-22] VITALS: Ht 162.6 cm; Wt 72.0 kg
[~2017-03-22 17:34] MED LIST changes: +IBUP-232 PO
[2017-03-22 17:36] VITALS: BP 138/84; PULSE 84; RESP 16; TEMP 98.4; O2SAT 98
--- NOTE | 2017-03-22 18:20 | PD ---
HPI Chief Complaint: Lump, Cyst, Hernia Time Seen by Provider: 18:14 Travel History International Travel<30 days: No Contact w/Intl Traveler<30days: No Traveled to known affect area: No History of Present Illness HPI 26-year-old female female presents to emergency Department with complaint of a lump to the back of her right upper neck 6 months. Denies fever, vomiting. Says the areas tender and has a burning sensation. Has not taken any medications or tried any treatments to alleviate her symptoms. No known relieving or aggravating factors. Allergies to sumatriptan. Has no medical complaints. No other modifying factors or associated signs and symptoms. History Past Medical Histgory LMP: 03/22/17 Social History Alcohol Use: No Tobacco Use: No Allergies-Medications (Allergen,Severity, Reaction): Coded Allergies: sumatriptan (Verified Allergy, Severe, DELUSIONS, 03/22/17) Reported Meds & Prescriptions Reported Meds & Active Scripts Active Ibuprofen 600 Mg Tab 600 Mg PO Q6H PRN Reported Synthroid (Levothyroxine Sodium) 88 Mcg Tab 88 Mcg PO DAILY Vit ( Plus) (Prenat Multivit/Stand Up Forklift Operator/Iron/Folic Ac) Tab 1 Tab PO DAILY Review of Systems Except as stated in HPI: all other systems reviewed are Neg Physical Exam Narrative GENERAL: Well-nourished, well-developed female patient, in no acute distress SKIN: Warm and dry. I am unable to palpate or visualize any lump to the posterior right upper neck; there is no erythema, edema, drainage. The right neck and left neck feels the same on palpation. No lymphadenopathy on palpation. HEAD: Atraumatic. Normocephalic. EYES: Pupils equal and round. No scleral icterus. No injection or drainage. ENT: Mucosa pink and moist. No erythema or exudates. No uvular edema. No uvular , palatal, or tonsillar deviation. Airway patent. EARS: Bilateral pinnae and external canals appear within normal limits. Bilateral tympanic membranes without erythema, dullness or perforation. NECK: Trachea midline. CARDIOVASCULAR: Regular rate. RESPIRATORY: No accessory muscle use. GASTROINTESTINAL: Rounded. MUSCULOSKELETAL: No obvious deformities. No clubbing. No cyanosis. No edema. NEUROLOGICAL: Awake and alert. Oriented 3. No obvious cranial nerve deficits. Motor grossly within normal limits. Normal speech. PSYCHIATRIC: Appropriate mood and affect; insight and judgment normal. Data Data Last Documented VS Vital Signs Date Time Temp Pulse Resp B/P (MAP) Pulse Ox O2 Delivery O2 Flow Rate FiO2 03/22/17 17:36 98.4 84 16 138/84 (102) 98 MDM Medical Screen Exam Complete: Yes Emergency Medical Condition: No Differential Diagnosis Medical clearance Narrative Course 26-year-old female with complaint of a lump to the back of her right upper neck that I'm unable to palpate or visualize. Both sides of the posterior neck feel the same to me on exam. No cervical lymphadenopathy. Patient is afebrile and nontoxic-appearing. She denies fever, vomiting. Vital signs are stable and the patient is stable for outpatient follow-up and treatment. The patient has no urgent or emergent medical complaints. There is no emergent or urgent medical need at this time. I instructed the patient to follow up with their primary care provider. A medical screening exam was performed: At the time of evaluation the presenting medical condition was determined not to be of an emergent nature. The patient was given the option of receiving additional care, but declined. Patient was given options for additional community resources from which to obtain care. The Patient Has Been advised to seek medical attention for their presenting complaint. The patient has been advised to return to the ER at any time if an emergent condition develops. Primary Impression: Encounter for medical screening examination Condition: Stable Kayli Sheridan Mar 22, 2017 18:19
== END 2017-03-22 18:25 | disposition left against medical advice (07) ==
LOC: NEPK 17:34
DX: Z03.89 Encounter for observation for other suspected diseases and conditions ruled out (principal)
CPT/HCPCS: 99281